=== PATIENT | female | born 1990 | race Caucasian/White ===

== ENCOUNTER 2017-03-23 04:44 | Emergency (ER) | payer BC ==
[~2017-03-23] VITALS: Ht 172.7 cm; Wt 78.5 kg
[~2017-03-23 04:44] MED LIST: LEXAPRO10 MG PO; PRENATA CHEWAB1 EACH PO; ULTRAM50 MG PO
[2017-03-23] MEDS ORDERED: anxiety PO (05:20)
== END 2017-03-23 06:45 | disposition short-term general hospital (02) ==
LOC: ER 04:44
DX: R51 Headache (principal); F41.9 Anxiety disorder, unspecified; Z90.49 Acquired absence of other specified parts of digestive tract
CPT/HCPCS: J1200; J1885; J2550; J2765

== ENCOUNTER 2017-03-24 12:39 | Emergency (ER) | payer BC ==
[~2017-03-24] VITALS: Ht 172.7 cm; Wt 78.5 kg
[~2017-03-24 12:39] MED LIST changes: +anxiety PO
== END 2017-03-24 13:05 | disposition short-term general hospital (02) ==
LOC: ER 12:39
DX: J03.90 Acute tonsillitis, unspecified (principal); G43.909 Migraine, unspecified, not intractable, without status migrainosus

== ENCOUNTER 2017-03-29 21:38 | Emergency (ER) | payer BC ==
[~2017-03-29] VITALS: Ht 172.7 cm; Wt 78.5 kg
== END 2017-03-29 22:35 | disposition short-term general hospital (02) ==
LOC: ER 21:38
DX: J03.90 Acute tonsillitis, unspecified (principal)
CPT/HCPCS: J0696; J1885; J2930

== ENCOUNTER 2017-05-03 13:48 | Emergency (ER) | payer BC ==
[~2017-05-03] VITALS: Ht 172.7 cm; Wt 76.2 kg
== END 2017-05-03 16:00 | disposition short-term general hospital (02) ==
LOC: ER 13:48 → ULTR 13:49 → ER 13:49
DX: O02.1 Missed abortion (principal); K21.9 Gastro-esophageal reflux disease without esophagitis; G51.0 Bell's palsy
CPT/HCPCS: A9150